=== PATIENT | male | born 2000 | race African-American/Black ===

== ENCOUNTER 2022-11-20 17:53 | Emergency (ER) | payer OTHER ==
[2022-11-20 18:03] VITALS: BP 127/79; PULSE 96; RESP 18; TEMP 99; BMI 19.5
[2022-11-20 18:48] LABS: URINE MUCUS FEW
[2022-11-20 22:45] LABS: HIV INTERPRETATION NEGATIVE (NEGATIVE)
== END 2022-11-20 20:06 | disposition home or self-care (01) ==
LOC: FER 17:53
DX: N50.812 Left testicular pain (principal); N50.82 Scrotal pain
CPT/HCPCS: 36415; 76870-TC; 81003; 81015; 87086; 87389; 87491; 87591; 87661; 99284-25